=== PATIENT | male | born 1960 | race Caucasian/White ===

== ENCOUNTER 2020-02-24 18:14 | Emergency (ER) | payer OTHER, SELFPAY ==
--- NOTE | 2020-02-24 18:45 | ED.GENADULT ---
HPI - General Adult General Chief complaint: Chest Pain Stated complaint: chest pain Time Seen by Provider: 02/24/20 18:45 Source: patient Mode of arrival: ambulatory Limitations: no limitations History of Present Illness HPI narrative: 59-year-old male patient presents to the [facility] with complaints of chest pain for the past month that is gotten increasingly worse. Patient states that the chest pain is worse with exertion. Patient had a stent placed in his heart about 2 years ago. Patient states he was told he might have had a change of an OK at the time but was not for sure. Patient states he does have an appointment with his corporate coordinator tomorrow but states he thought that the chest pain was getting worse and would come and get checked out. Related Data Home Medications Medication Instructions Recorded Confirmed allopurinol 300 mg tablet 300 mg PO DAILY 09/25/19 alprazolam 0.5 mg tablet 0.5 - 1 mg PO DAILY PRN tablet 09/25/19 aspirin 81 mg tablet,delayed 81 mg PO DAILY 09/25/19 release atorvastatin 10 mg tablet 10 mg PO DAILY 09/25/19 clopidogrel 75 mg tablet 75 mg PO DAILY 09/25/19 cyanocobalamin (vitamin B-12) 500 500 mcg PO DAILY 09/25/19 mcg tablet diltiazem HCl 360 mg capsule,24 360 mg PO DAILY 09/25/19 hr,extended release doxazosin 4 mg tablet 8 mg PO .hs tablet 09/25/19 furosemide 20 mg tablet 60 mg PO QAM tablet 09/25/19 melatonin 5 mg capsule 5 mg PO .hs PRN cap 09/25/19 metoprolol succinate 25 mg 25 mg PO DAILY 09/25/19 tablet,extended release 24 hr phcolwfr-sdr-tbwbw acid 0.4 1 tablet PO DAILY 09/25/19 mg-lycopene 300 mcg-lutein 250 mcg tablet omega-3 fatty acids 1,000 mg 1,000 mg PO DAILY 09/25/19 capsule isosorbide mononitrate mg PO 02/24/20 isosorbide mononitrate mg PO 02/24/20 valsartan-hydrochlorothiazide tablet 02/24/20 Allergies Allergy/AdvReac Type Severity Reaction Status Date / Time naproxen Allergy Mild raised BP Verified 09/25/19 08:18 Review of Systems Review of Systems: Narrative: CONSTITUTIONAL: Denies fever, chills, or sweats. EYES: Denies visual changes, redness, or discharge. ENT: Denies rhinorrhea, congestion, sore throat, or otalgia. CARDIOVASCULAR: Positive chest pain, palpitations, or edema. RESPIRATORY: Denies cough or dyspnea. GASTROINTESTINAL: Denies abdominal pain, nausea, vomiting, or diarrhea. GENITOURINARY: Denies dysuria or hematuria. SKIN: Denies rash or itching. MUSCULOSKELETAL: Denies back pain, joint pain, or myalgia. NEUROLOGIC: Denies headache, numbness, or weakness. PSYCHIATRIC: Denies anxiety or depression. [facility] Past Medical History Medical History (Updated 02/24/20 @ 19:10 by KRYSTLE Cordon) Hypercholesterolemia Hypertension Myocardial infarction Surgical History Surgical History (Updated 02/24/20 @ 19:04 by KRYSTLE Cordon) H/O cardiac catheterization Stent placed Family History Family History Sibling Patient's sister is in good health Patient's brother is Father Patient's father is Social History Social History Smoking status: Former smoker Smoking end date: 07/24/88 Alcohol intake: current Comments At the time of my signature I agree with nursing past medical history, surgical, social, and family history. There is no relevant family history pertinent to the presenting complaint. Exam Narrative: Exam Narrative: GENERAL: Well-appearing, well-nourished, and in no acute distress. HEAD: Normocephalic, atraumatic. EYES: PERRLA and EOMI. ENT: Nares clear, no rhinorrhea or epistaxis. Mucous membranes moist. NECK: Supple. No lymphadenopathy CHEST: Clear to auscultation. No respiratory distress. Patient does appear to have slightly labored breathing and talking in broken sentences but denies shortness of breath. HEART: Regular rate
[2020-02-24 18:48] VITALS: BP 125/64; PULSE 78; RESP 20; TEMP 36.6; O2SAT 96
--- NOTE | 2020-02-24 19:26 | ECG_ITS ---
Measurements Intervals [place] Rate: 92 P: 31 NH: 163 QRS: -29 QRSD: 90 T: 8 QT: 358 QTc: 445 Interpretive Statements SINUS RHYTHM DELAYED PRECORDIAL R/S TRANSITION BASELINE ARTIFACT- I, II, III, AVR, AVL, AVF, V1-V2 BORDERLINE ECG Electronically Signed On 02-24-2020 19:55:24 CDT by Christiano Arroyo D.O.
== END 2020-02-24 19:02 | disposition short-term general hospital (02) ==
PROVIDERS: Emergency Provider Nurse Practitioner Family; PCP Internal Medicine
DX: R07.9 Chest pain, unspecified (principal); I10 Essential (primary) hypertension; I25.2 Old myocardial infarction; Z79.82 Long term (current) use of aspirin; Z87.891 Personal history of nicotine dependence
CPT/HCPCS: 93005; 99213; G0463

== ENCOUNTER 2020-02-24 19:23 | Emergency (ER) | payer OTHER, SELFPAY ==
[2020-02-24 19:32] VITALS: BP 159/88; PULSE 90; PULSE 92; RESP 20; TEMP 36.6; O2SAT 96
--- NOTE | 2020-02-24 19:34 | ED.CHESTPAIN ---
HPI - Chest Pain General Chief Complaint: Chest Pain Stated Complaint: chest pain Time Seen by Provider: 02/24/20 19:29 History of Present Illness HPI narrative: Patient presents for chest pain escalating over the last 2 days. He has a history of a stent with his coronary artery disease. He said the chest pain is been over the last couple months, but much worse in the last 2 days. The last time he had it was 4 PM today when he walked out to the mailbox. It was a 5 out of 10. He points to mid sternum. He said it radiated to the back. Was not associated with shortness of breath nausea or diaphoresis. He no longer smokes cigarettes. He drinks alcohol rarely. He tried a marijuana gummy bear. Surgical history is appendectomy. He has not been sick recent. MD complaint: chest pain Pertinent past history: coronary artery disease Onset (ago): week(s) Timing of current episode: now resolved Prior episodes: Yes Onset: during exertion Pain location: substernal Pain radiation: back Severity: moderate Relieving factors: rest Exacerbating factors: exertion Related Data Home Medications Medication Instructions Recorded Confirmed allopurinol 300 mg tablet 300 mg PO DAILY 09/25/19 alprazolam 0.5 mg tablet 0.5 - 1 mg PO DAILY PRN tablet 09/25/19 aspirin 81 mg tablet,delayed 81 mg PO DAILY 09/25/19 release atorvastatin 10 mg tablet 10 mg PO DAILY 09/25/19 clopidogrel 75 mg tablet 75 mg PO DAILY 09/25/19 cyanocobalamin (vitamin B-12) 500 500 mcg PO DAILY 09/25/19 mcg tablet diltiazem HCl 360 mg capsule,24 360 mg PO DAILY 09/25/19 hr,extended release doxazosin 4 mg tablet 8 mg PO .hs tablet 09/25/19 furosemide 20 mg tablet 60 mg PO QAM tablet 09/25/19 melatonin 5 mg capsule 5 mg PO .hs PRN cap 09/25/19 metoprolol succinate 25 mg 25 mg PO DAILY 09/25/19 tablet,extended release 24 hr nsycyrdl-coo-wtqmz acid 0.4 1 tablet PO DAILY 09/25/19 mg-lycopene 300 mcg-lutein 250 mcg tablet omega-3 fatty acids 1,000 mg 1,000 mg PO DAILY 09/25/19 capsule isosorbide mononitrate mg PO 08/03/20 isosorbide mononitrate mg PO 02/24/20 valsartan-hydrochlorothiazide tablet 02/24/20 Allergies Allergy/AdvReac Type Severity Reaction Status Date / Time naproxen Allergy Mild raised BP Verified 02/24/20 19:44 Review of Systems Review of Systems: Narrative: CONSTITUTIONAL: Denies fever, chills, or sweats. EYES: Denies visual changes, redness, or discharge. ENT: Denies rhinorrhea, congestion, sore throat, or otalgia. CARDIOVASCULAR: He has chest pain, but not palpitations, or edema. RESPIRATORY: Denies cough or dyspnea. GASTROINTESTINAL: Denies abdominal pain, nausea, vomiting, or diarrhea. GENITOURINARY: Denies dysuria or hematuria. SKIN: Denies rash or itching. MUSCULOSKELETAL: Denies back pain, joint pain, or myalgia. NEUROLOGIC: Denies headache, numbness, or weakness. All systems reviewed & are unremarkable except as noted in HPI and below PMFSH Past Medical History Medical History (Updated 02/25/20 @ 00:41 by Penelope Leonard MD) Hypercholesterolemia Hypertension Morbid obesity Myocardial infarction Surgical History Surgical History (Updated 02/24/20 @ 19:37 by Penelope Leonard MD) H/O cardiac catheterization Stent placed History of appendectomy Social History Social History (Updated 02/24/20 @ 19:38 by Penelope Leonard MD) Smoking status: Former smoker Smoking end date: 07/24/88 Alcohol intake: current Substance use: former Exam Narrative: Exam Narrative: GENERAL: Well-appearing, well-nourished, and in no acute distress. Morbid obesity. Unkempt. HEAD: Normocephalic, atraumatic. EYES: PERRLA and EOMI. ENT: Nares clear, no rhinorrhea or epistaxis. Mucous membranes moist. NECK: Supple. CHEST: Clear to auscultation. No respiratory distress. HEART: Regular rate and rhythm. No murmur heard. Normal peripheral pulses. ABDOMEN: Soft, nontender, nondistended, normal active bowel sounds.
--- NOTE | 2020-02-24 19:38 | ECG_ITS ---
Measurements Intervals [place] Rate: 84 P: -7 NH: 123 QRS: -27 QRSD: 98 T: 32 QT: 373 QTc: 442 Interpretive Statements SINUS RHYTHM BORDERLINE R WAVE PROGRESSION, ANTERIOR LEADS BASELINE ARTIFACT- II, III BORDERLINE ECG Electronically Signed On 02-24-2020 19:59:00 CDT by Christiano Arroyo D.O.
--- NOTE | 2020-02-24 20:24 | PC.NURSE ---
ASA not administered-pt was given 324mg ASA ZINC ETCHER.
[2020-02-24 20:33] LABS: Basophils Percent Auto 0.4 % (0.2-1.2); Eosinophils Absolute Auto 0.2 K/mm3 (0-0.3); Eosinophils Percent Auto 2.1 % (0-4.4); Hematocrit 40.9 % (42.0-52.0); Hemoglobin 14.3 g/dL (14.0-18.0); Immature Granulocyte Absolute 0.03 K/mm3 (0.00-0.031); Immature Granulocyte Percent A 0.4 % (0-0.5); Lymphocytes Absolute Auto 2.22 K/mm3 (0.9-3.2); Lymphocytes Percent Auto 30.9 % (18.3-44.2); Mean Corpuscular Hemoglobin 30.4 pg (26-34); Mean Corpuscular Volume 86.8 fl (80-100); Mean Platelet Volume 10.1 fl (7.4-10.4); Monocytes Absolute Auto 0.7 K/mm3 (0.1-0.6); Monocytes Percent Auto 10.2 % (2.6-8.5); Platelet Count Result 272 k/mm3 (150-375); Red Blood Count 4.71 M/mm3 (4.6-6.20); Red Cell Distribution Width 13.9 % (11.5-14.5); White Blood Count 7.2 K/mm3 (4.5-10.0)
--- NOTE | 2020-02-24 20:35 | PC.NURSE ---
pt's niece at bedside, updated on poc. pt continues to deny any CP, hooked up to monitor. will continue to monitor pt for baseline status changes.
[2020-02-24 20:38] VITALS: BP 131/74; PULSE 92; RESP 17; O2SAT 98
[2020-02-24 20:45] LABS: Alanine Aminotransferase 49 U/L (4-50); Albumin Level 4.4 g/dL (3.5-5.1); Alkaline Phosphatase 65 U/L (38-126); Anion Gap 12.6 mmol/L (7-16); Aspartate Amino Transferase 35 U/L (17-59); Bilirubin,Total 0.6 mg/dL (0.2-1.3); Blood Urea Nitrogen 21 mg/dL (9-20); Calcium 9.6 mg/dL (8.4-10.2); Carbon Dioxide 26 mmol/L (22-30); Chloride 101 mmol/L (98-107); Estimated CRCL calculation 87 ml/min; Estimated Glomerular Filt Rate 56; Glucose 105 mg/dL (75-110); Potassium 3.6 mmol/L (3.4-5.0); Sodium 136 mmol/L (137-145)
[2020-02-24 20:55] LABS: NT Pro B Type Natriuretic Pept 45 PG/ML (5-100)
[2020-02-24 20:57] LABS: Troponin I < 0.012 ng/mL (0.000-0.034)
[2020-02-24 21:05] LABS: Add Urine Microscopic? YES; Appearance Urine Clear (Clear); Bilirubin Urine Negative (Negative); Blood Urine Negative (Negative); Color Urine Straw (Yellow); Glucose Urine UA Negative (Negative); Ketones Urine Negative (Negative); Leukocyte Esterase Ur Negative LEU/UL (Negative); Mucus Urine Rare /lpf; Nitrate Urine Negative (Negative); Protein Urine 1+ mg/dL (Negative); RBC Urine 0-2 /hpf (0-2); Specific Grav Ur 1.012 (1.001-1.035); Urobilinogen Urine Negative mg/dL (<2.0); WBC Urine 0-3 /hpf
--- NOTE | 2020-02-24 21:26 | PC.NURSE ---
Nirto paste not administered at this time, pt states he has not been having pain since 4pm. aware.
[2020-02-24 21:30] VITALS: BP 145/77; PULSE 94; RESP 16; O2SAT 97
--- NOTE | 2020-02-24 22:51 | PC.NURSE ---
pt continues to rest sitting up in chair at this time. denies questions/concerns. updated on poc, will continue to monitor pt for baseline status changes. continues to deny pain.
[2020-02-24 23:34] VITALS: BP 155/83; PULSE 91; RESP 17; O2SAT 96
[2020-02-25 00:08] LABS: Troponin I < 0.012 ng/mL (0.000-0.034)
[2020-02-25 00:54] VITALS: BP 149/91; PULSE 82; RESP 18; O2SAT 96
== END 2020-02-25 00:55 | disposition home or self-care (01) ==
PROVIDERS: Emergency Provider Emergency Medicine; PCP Internal Medicine
DX: R07.9 Chest pain, unspecified (principal); Z95.5 Presence of coronary angioplasty implant and graft; I25.10 Atherosclerotic heart disease of native coronary artery without angina pectoris; E78.00 Pure hypercholesterolemia, unspecified; I10 Essential (primary) hypertension; I25.2 Old myocardial infarction; E66.01 Morbid (severe) obesity due to excess calories; Z68.42 Body mass index [BMI] 45.0-49.9, adult; Z87.891 Personal history of nicotine dependence; R94.31 Abnormal electrocardiogram [ECG] [EKG]
CPT/HCPCS: 36415; 80053; 81001; 83880; 84484; 85025; 93005; 99284

== ENCOUNTER 2020-07-30 06:54 | Outpatient (NON) | payer OTHER, SELFPAY ==
[2020-07-30 23:33] LABS: SARS-CoV-2 RNA PCR Negative
== END 2020-07-30 06:55 ==
PROVIDERS: PCP Internal Medicine; Visit Provider Internal Medicine
DX: J02.9 Acute pharyngitis, unspecified (principal); Z20.822 Contact with and (suspected) exposure to COVID-19
CPT/HCPCS: C9803; U0003

== ENCOUNTER → 2023-05-15 15:46 | Outpatient (CLI) | payer OTHER, SELFPAY ==
--- NOTE | ~2023-05-15 | US_ITS ---
Renal-Bladder ultrasound Clinical History: Chronic kidney disease Technique: Real-time sonographic imaging of the kidneys and urinary bladder was performed. Findings: The right kidney measures 11.9 cm in length and the left kidney measures 14 point cm. There is no hydronephrosis or renal calculus identified. Renal cortical echogenicity is mildly increased. Small bilateral renal cysts are noted. The urinary bladder is moderately distended at the time of this exam. No intraluminal echoes are iden tified. No abnormal wall thickening is seen. Impression: No hydronephrosis. Mildly increased renal echogenicity suggests chronic medical renal disease. Small bilateral renal cysts. Reviewed, dictated and finalized at location . Impression: No hydronephrosis. Mildly increased renal echogenicity suggests chronic medical renal disease. Small bilateral renal cysts.
== END ==
PROVIDERS: Visit Provider Internal Medicine
DX: N18.9 Chronic kidney disease, unspecified (principal); N28.1 Cyst of kidney, acquired
CPT/HCPCS: 76775

== ENCOUNTER 2024-12-26 02:57 | Day surgery (SDC) | payer MEDICARE, SELFPAY ==
[2024-12-20 10:19] VITALS: BMI 44.8
--- NOTE | 2024-12-20 11:09 | PC.NURSE ---
Spoke with patient regarding medication plavix. _Patient_verbalizes understanding that the last dose is to be taken on _12/21/2024_ and the Endoscopist will instruct them when to restart after the procedure.
--- OUTSIDE RECORDS SUMMARY | 2024-12-26 03:00 | XMS_ITS | Data Portability ---
Author Organization [place] [facility] [employer], Main Office Address [address] [place] [address] Care Team Providers Care Dairy Quality Assurance Officer Name Role Phone LUZ NATARAJAN Primary Care Provider LUZ NATARAJAN Referring Provider Assessment Encounter Date Assessment Date Assessment LastModified by Organization Details LastModified Time 12/28/2022 12/28/2022 62-year-old male presents to clinic concerning left shoulder pain likely related to cervical radiculopathy originating from his C-spine. He has reproducible pain, numbness and tingling with extension and rotation of his C-spine towards his left shoulder. Discussed possible treatment options including Medrol Dosepak, physical therapy, and referral to pharmacy informatics specialist. We will provide him with a referral to physical therapy for cervical radiculopathy treatment, working on range of motion C-spine strengthening and traction. Will also prescribe him a Medrol Dosepak to help with some of the nerve inflammation. We discussed that if this does not work we may consider referral to a pharmacy informatics specialist. He may return as needed if his symptoms do not improve over the course of the next 6-8 weeks. [email or web address] Not available 12/28/2022 16:27:33 Plan of Treatment Reminders Order Date Submit Date Provider Last Modified By Organization Details Last Modified Time Details Appointments None recorded. Lab None recorded. Referral physical therapist referral - C-SPINE ROM, TRACTION, STRENGTHENI NG, MODALITIES 2022 023 [email or web address] [facility], [address], [place], [address], 16:40:58 Procedures None recorded. Surgeries None recorded. Imaging XR, shoulder, 2 or more view 2022 023 [email or web address] [facility], [address] [place], [address], 16:40:58 Medication Orders Medrol (Hernandez) 4 mg tablets in a dose pack 2022 023 [email or web address] [id number], [address], [place], [address], 16:40:58 Patient TargetsNo targets recorded. Patient InstructionsNo instructions recorded. Reason for Referral Physical Therapist Referral for Cervical radiculopathy C-SPINE ROM, TRACTION, STRENGTHENING, MODALITIES Referring Physician: Champ Bautista, Orthopedics, Encounter Date: 12/28/2022 Results Created Date Observation Date Name Description Value Unit Range Abnormal Flag Note LastModifiedBy Organization Detail LastModifiedTime 06/07/20 22 XR, elbow , 3 or more view No observ ation record ed. [id number] [facility] [address] [place], [address], 09/21/2022 16:16:19 06/07/20 22 XR, hand, 3 or more view No observ ation record ed. [id number] [facility] [address] [place], [address], 09/21/2022 16:16:19 12/29/19 23 XR, shoul eddi, 2 or more view No observ ation record ed. [email or web address] [facility] [address] [place], [address], 12/28/2022 16:24:49 Result Notes None recorded. Problems Name Problem SNOMED Code Status Onset Date Resolution Date Notes Provider Name and Address Organization Details Recorded Time Pain of left elbow joint 1123197209459 9104 Active 2021 Not Available [facility] 3 16:14:52 Current tear of medial cartilage AND/OR meniscus of knee Active Not Available [facility] 3 16:14:52 Pain of left hand 2861096650174 03 Active 2021 Not Available [facility] 3 16:14:53 Osteoarthr itis 819861400 Active Not Available [facility] 3 16:14:53 Derangemen t of knee 77518814 Active Not Available [facility] 3 16:14:53 Degenerati on of interverte bral disc 14317165 Active Not Available [facility] 3 16:14:53 Gout 54724033 Active Not Available [facility] 3 16:14:53 Pain of left shoulder joint 7906177692194 9109 Active 2022 ALIVIA Duron [facility] 3 14:58:30 Cervical radiculopa thy 48596511 Active 2022 Monse ramirez, [facility] 3 15:53:29 Problem Notes None recorded. Procedures Surgical History Date Name Laterality Status Provider Name and Address Organization Details Recorded Time 8 Appendectomy completed Not Available [facility] 023 16:14:21 Imaging Results None recorded. Procedure Notes None recorded. Medical Equipment None Reported. Medications Name Sig Start Date Stop Date Status Note LastModified by Organization Details LastModified Time furosemide 40 mg tablet 05/24 completed Not Available Not Available Not Available atorvastati n 40 mg tablet 05/24 completed Not Available Not Available Not Available atorvastati n 80 mg tablet active Not Available Not Available Not Available prednisone 10 mg tablet 05/24 completed Not Available Not Available Not Available nabumetone 750 mg tablet 05/24 completed Not Available Not Available Not Available azithromyci n 250 mg tablet 05/24 completed Not Available Not Available Not Available hydrocodone 5 mg-acetamin ophen 325 mg tablet TAKE 1 TABLET BY MOUTH EVERY 12 HOURS NEEDED active Not Available Not Available No t Available prednisone 20 mg tablet 05/24 completed Not Available Not Available Not Available isosorbide mononitrate ER 30 mg tablet,exte nded release 24 hr 05/24 completed Not Available Not Available Not Available potassium chloride ER 10 mEq tablet,exte nded release TAKE 1 TABLET BY MOUTH TWICE A DAY active Not Available Not Available No t Available clopidogrel 75 mg tablet active Not Available Not Available Not Available bupropion HCl SR 100 mg tablet,12 hr sustained-r elease 05/24 completed Not Available Not Available Not Available isosorbide mononitrate ER 60 mg tablet,exte nded release 24 hr TAKE 1 TABLET BY MOUTH EVERY DAY active Not Available Not Available No t Available alprazolam 0.5 mg tablet TAKE 1 TABLET BY MOUTH EVERY DAY NEEDED FOR ANXIETY 05/24 completed Not Available Not Available Not Available alprazolam 0.25 mg tablet 05/24 completed Not Available Not Available Not Available doxazosin 8 mg tablet TAKE 1 TABLET BY MOUTH EVERY NIGHT AT BEDTIME active Not Available Not Available No t Available gabapentin 800 mg tablet TAKE 1 TABLET BY MOUTH THREE TIMES A DAY active Not Available Not Available No t Available AndroGel 1 % (50 mg/5 gram) transdermal gel packet 05/24 completed Not Available Not Available Not Available Kenalog 10 mg/mL suspension for injection In office injection administe red by the provider active [facility]: 0003- 0494- 20 Not Available Not Available Not Available nitroglycer in 0.[address] 1 TABLET UNDER TONGUE EVERY 5 MINS, UP TO 3 DOSES NEEDED FOR CHEST PAIN active Not Available Not Available No t Available doxazosin 4 mg tablet 05/24 completed Not Available Not Available Not Available allopurinol 300 mg tablet active Not Available Not Available Not Available furosemide 20 mg tablet active Not Available Not Available Not Available metoprolol succinate ER 25 mg tablet,exte nded release 24 hr active Not Available Not Available Not Available Cheratussin AC 10 mg-100 mg/5 mL oral liquid 05/24 completed Not Available Not Available Not Available methylpredn isolone 4 mg tablets in a dose pack TAKE 6 TABLETS ON DAY 1 DIRECTED ON PACKAGE AND DECREASE BY 1 TAB EACH DAY FOR A TOTAL OF 6 DAYS active Not Available Not Available No t Available fluticasone propionate 50 mcg/actuati on nasal spray,suspe nsion 05/24 completed Not Available Not Available Not Available sertraline 50 mg tablet TAKE 1 TABLET BY MOUTH EVERY DAY active Not Available Not Available No t Available imipramine 25 mg tablet 05/24 completed Not Available Not Available Not Available potassium chloride ER 10 mEq tablet,exte nded release(par t/cryst) 05/24 completed Not Available Not Available Not Available valsartan 320 mg-hydrochl orothiazide 25 mg tablet TAKE 1 TABLET BY MOUTH EVERY DAY active Not Available Not Available No t Available ProAir HFA 90 mcg/actuati on aerosol inhaler 05/24 completed Not Available Not Available Not Available Bystolic 10 mg tablet 05/24 completed Not Available Not Available Not Available Bystolic 20 mg tablet 05/24 completed Not Available Not Available Not Available ropivacaine (PF) 5 mg/mL (0.5 %) injection solution Take 2 mg by injection route. active Not Available Not Available No t Available Tiadylt ER 360 mg capsule,ext ended release TAKE 1 CAPSULE BY MOUTH EVERY DAY active Not Available Not Available No t Available ID NOW COVID-19 Test Kit TEST DIRECTED TODAY active Not Available Not Available No t Available Vitals Date Recorded Body mass index (BMI) Body height Body weight Provider Name and Address Organization Details Last Updated DateTime 09/06/2022 46.8 kg/m2 185.42 cm 137193.29 g Not Available [facility] 09/21/2022 16:14:36 Date Recorded Body height Body mass index (BMI) Body weight Provider Name and Address Organization Details Last Updated DateTime 12/28/2022 185.42 cm 46.2 kg/m2 047904.33 g ALIVIA Duron [place] [facility] [place] [facility] 12/28/2022 14:57:58 Date Recorded Body mass index (BMI) Body height Body weight Provider Name and Address Organization Details Last Updated DateTime 06/07/2022 46.8 kg/m2 185.42 cm 460667.29 g Not Available [facility] 09/21/2022 16:14:36 Social History Question Answer Notes LastModified by Organizat ion Details LastModified Time Tobacco Smoking Status Unknown If Ever Smoked Not Available [facility] 09/21/2022 16:14:20 What Was The Date Of Your Most Recent Tobacco Screening? 06/07/2022 [id number] Information not available 09/21/2022 Sex: Unknown Functional Status Question Answer Note LastModified by Organizat ion Details LastModified Time What is your level of alcohol consumption? Occasional [id number] Information not available 09/21/2022 Mental Status None recorded. Family History Relationship Description Onset Age of this Age Resolved Age Notes LastModified by Organization Details LastModified Time Mother Heart disease [id number] Not available 09/21/2022 16:14:21 Mother Hypertensive disorder [id number] Not available 09/21/2022 16:14:21 Maternal Grandmother Family history of malignant neoplasm [id number] Not available 09/21/2022 16:14:21 Sister Diabetes mellitus [id number] Not available 09/21/2022 16:14:21 Sister Kidney disease [id number] Not available 09/21/2022 16:14:21 Medical History Condition Response USE OF BLOOD THINNERS Y SKIN PROBLEMS Y HYPERTENSION Y ARTHRITIS Y GOUT Y HEART DISEASE/HEART PROBLEMS Y Past Encounters Encounter ID Performer Location Encounter Start Date Encounter Closed Date Diagnosis/Indication Diagnosis SNOMED-CT Code Diagnosis ICD10 Code Diagnosis Note [id number] Terry Sanderson MD [facility] [place] [facility] [address] [place] [address] 06/07/2022 00:00:00 06/07/2022 12:33:10 [id number] Terry Sanderson MD [facility] [place] [address] [place] [address] 09/06/2022 00:00:00 09/06/2022 17:00:11 [id number] Terry Sanderson MD [facility] [place] [address] [place] [address] 12/28/2022 14:52:53 12/28/2022 15:52:25 Pain of left shoulder joint [id number] 8394362 M25.512 Cervical radiculopathy 01831099 M54.12 Health Concerns Section Related Observation LastModified by Organization Detai ls LastModified Time None Recorded Concern Status LastModified by Organization Details LastModified Time None Recorded Advance Directives Directive None Recorded Payers Encounter Date Sequence Insurance Name Policy Number Policy Mcclure Covered Member ID Mcclure Member ID Guarantor Name 12/28/2022 1 [employer] - OPEN ACCESS Asad Johansen [id number] OI Asad Johansen Notes Date Note Type Note Provider Name and Address Organization Details Recorded Time 12/28/2022 text/html 62-year-old male presents to clinic concerning left shoulder pain for the last 2-3 weeks. He states that he gets occasional shoulder pain localized in the posterior shoulder that radiates down the shoulder into the arm and into his hand. he also notes occasional numbness and tingling in his hands when this occurs. He notices when he moves his neck in a certain direction that he is able to reproduce the symptoms. He denies any injury to his neck or shoulder. Notes that he has gone to the chiropractor has been told that he has limited motion in his cervical spine. DENIZ Riojas [address] [place] [address], [facility] [address], [place], [address], [place] [facility] Confer 12/28/2022 16:27:46
--- OUTSIDE RECORDS SUMMARY | 2024-12-26 03:00 | XMS_ITS | Continuity of Care Document ---
Author Organization [facility] Address [address] [place] [address] [address] [place] [address] Phone Care Team Providers Care Senior Recruiter Name Role Phone Chowdhury OD, Berhane Unavailable Unavailable Procedures Procedure Date Eye Exam & Treatment Refraction Eye Exam & Treatment Refraction Advance Directives Directive Yes / No Effective Date File Name No Information Encounters Encounter Description Practice Location Reason(s) For Visit Diagnoses Date Provider Providers Copied on Encounter [facility], [id number] [place] [address] [address], [place], [place], [id number], [place] tel:[phone] SEC [facility] No Information 0-201 0 Chowdhury OD Berhane. [address] , [address], [place], [address], [place]. tel:[phone] [facility], [address] [place] [address] [address], [place], [place], [id number], [place] tel:[phone] SEC [facility] No Information 7-200 8 Chowdhury OD Berhane. [address] , [address], [place], [address], [place]. tel:[phone] Family History Family Member Type Diagnosis Age At Onset No Information Payers Payer name Insurance type Covered democrat ID Authoriza tion(s) No Information Social History Type Description Quantity Date Captured Comments Sex Male Smoking Status No Information Chief Complaint And Reason For Visit No Information Reason For Referral Reason For Referral No Information History Of Present Illness Encounter Date Complaint History Of Prese nt Illness No Information Functional Status Date Functional Assessmen t No Information Instructions Date Instruction Additional Infor mation No Information Assessments Type Assessment Date No Information Patient Care Teams Name Effective Dates (start - stop) Status Members No Information
--- OUTSIDE RECORDS SUMMARY | 2024-12-26 03:00 | XMS_ITS | Clinical Summary ---
Author Organization [facility] 2 Address [address] [facility] [place] [address] Care Team Providers Care Director Of Physical Security Name Role Phone Roger Montero MD Primary Care Provider [phone] Allergies No known active allergies Medications allopurinol (ZYLOPRIM) 300 mg tablet Take 1 tablet (300 mg total) by mouth daily Active aspirin 81 mg tablet Take 81 mg by mouth daily. 9 Active pljkavqi-pnw-KW- lycopen-lutein 0.4-300-250 mg-mcg-mcg tabletIndication s:Vitamin Deficiency Prevention daily. Active docusate sodium (COLACE) 100 mg capsuleIndicatio ns:constipation daily as needed 2 tabs daily Active cyanocobalamin (Vitamin B-12) 500 mcg tabletIndication s:Prevention of Vitamin B12 Deficiency daily. Active resveratrol 50 mg capsule 2 (two) times a day Active guaiFENesin ER (MUCINEX) 600 mg 12 hr tablet as needed Active sertraline (ZOLOFT) 50 mg tablet Take 1 tablet (50 mg total) by mouth daily. 30 tablet 3 8 Active ALPRAZolam (XANAX) 0.5 mg tablet daily as needed 2 Active nitroglycerin (NITROSTAT) 0.[address] 1 tablet (0.4 mg total) under the tongue every 5 (five) minutes as needed for chest pain May repeat dose q 5 min, up to 3 doses total 30 tablet 3 2 Active Additional Information Patient not taking.Reported on 11/13/2024 potassium chloride ER (KLOR-CON) 10 mEq CR tablet Take 2 tablet/capsule (20 mEq total) by mouth daily 2 Active Farxiga 10 mg tablet Take 1 tablet (10 mg total) by mouth daily 4 Active atorvastatin (LIPITOR) 80 mg tablet TAKE 1 TABLET BY MOUTH EVERY DAY 90 tablet 3 4 Active diltiazem (Tiadylt ER) 360 mg 24 hr capsule Take 1 capsule (360 mg total) by mouth daily 90 capsule 3 4 Active metoprolol XL (TOPROL-XL) 25 mg extended release tablet TAKE 1 TABLET BY MOUTH EVERY DAY 90 tablet 3 4 Active valsartan-hydroc hlorothiazide (DIOVAN-HCT) 320-25 mg per tablet TAKE 1 TABLET BY MOUTH EVERY DAY 90 tablet 2 4 Active doxazosin (CARDURA) 8 mg tablet TAKE 1 TABLET BY MOUTH EVERYDAY AT BEDTIME 90 tablet 2 4 Active isosorbide mononitrate ER (IMDUR) 60 mg 24 hr tablet TAKE 1 TABLET BY MOUTH EVERY DAY 90 tablet 3 4 Active furosemide (LASIX) 20 mg tablet TAKE 1 TABLET BY MOUTH TWICE A DAY 180 tablet 3 5 Active clopidogreL (PLAVIX) 75 mg tablet TAKE 1 TABLET BY MOUTH DAILY 90 tablet 3 5 Active pregabalin (LYRICA) 75 mg capsule Take 1 capsule (75 mg total) by mouth 3 (three) times a day 5 Active HYDROcodone-acet aminophen (NORCO) 5-325 mg per tablet Take 1 tablet by mouth every 12 (twelve) hours as needed for pain Active Active Problems Problem Noted Date Diagnosed Date Coronary artery disease invo lving [place] coronary artery without angina pectoris 04/16/2020 Mixed hyperlipidemia 04/16/2020 Hypertension 07/11/2018 Overview (07/11/2018): Hypertension S/P coronary artery stent placement Encounters Date Type Department Care Team Description 12/03/2024 Telephone [facility] Cardiology [address] [facility] 8th [place] [address] [place] [address] Malik Fabian MD 11/13/2024 11:30 AM CDT Office Visit [facility] Cardiology [address] [facility] [address] [place] [address] Malik Fabian MD Coronary artery disease involving [place] coronary artery of [place] heart without angina pectoris from Last 3 Months Surgical History Surgery Date Site/Laterality Comments APPENDECTOMY Appendectomy CARDIAC CATHETERIZATION CORONARY STENT PLACEMENT PLANTAR'S WART EXCISION Medical History Medical History Date Comments Hx 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; Comments: GUILLERMO 05/05/2014 - Hx Other Medical chronic back pa in Hx Other Medical Gout Hypertension Hypertension Coronary artery disease Family History Medical History Relation Name Comments Heart failure Maternal Grandmother Family history of congestive heart failure - (Added by TW Conv) Hypertension Mother Family history of hypertension - (Added by TW Conv) Hypertension Other Family history of Hypertension; Relation Name Status Comments Maternal Grandmother Mother Other Social History Tobacco Use Types Packs/Day Years Used Date Smoking Tobacco: Former Smokeless Tobacco: Never Tobacco Cessation:Counseling Given: Not Answered Alcohol Use Standard Drinks/Week Comments Defer 0 (1 standard drink = 0.6 oz pur e alcohol) PHQ-2 Answer Date Recorded PHQ-2 Total Score (If total score is 3 or more points, staff should administer the PHQ-9) 2 05/15/2020 Sex and Gender Information Value Date Recorded Sex Assigned at Not on file Legal Sex Male 3:20 AM RN QUALITY Gender Identity Not on file Sexual Orientation Not on file Obstetrics History Last Filed Vital Signs Vital Sign Reading Time Taken Comments Blood Pressure 110/62 11/13/2024 11:32 AM CDT Pulse 74 11/13/2024 11:32 AM CDT Temperature 36.4 C (97.6 F) 06/29/2020 3:09 PM RN QUALITY Respiratory Rate 10 03/17/2020 3:40 PM CDT Oxygen Saturation 96% 11/13/2024 11:32 AM CDT Inhaled Oxygen Concentration - - Weight 158.3 kg (349 lb) 11/13/2024 11:32 AM CDT Height 188 cm (6' 2) 11/13/2024 11:32 AM CDT Body Mass Index 44.81 11/13/2024 11:32 AM CDT Plan of Treatment Health Maintenance Due Date Last Done Comments Colon Cancer Screening-Colonoscopy 1959 Hepatitis C Screening 1959 Prostate Cancer Screening-PSA 1959 DTaP/Tdap/Td Vaccine (1 - Tdap) 1970 Hepatitis B Screening 1977 Pneumococcal vaccine 65+ (1 of 1 - PCV) 2009 Zoster Vaccine (1 of 2) 2009 Fall Risk Assessment 03/17/2021 03/17/2020 Depression Screening 05/15/2021 05/15/2020, 05/15/2020, 05/30/2018, Additional history exists Abdominal Aortic Aneurysm (A AA) Screen 2024 Well Visit 65+ 2024 Influenza Vaccine (Season Ended) 2025 05/07/2018, 04/21/2017, 06/02/2015 Medical Devices Implanted Type Area Commercial Credit Officer Device Identifier Shelf Expiration Date Model / Serial / Lot Med[employer] X [id number] Resolute [place] 3.5mm 2.1-2.7fr 15mm 140cm Rapid Exchange - [id number] - [id number] Implanted:Qty: 1 on 03/17/2020 by Sintek, Malik Nicholson MD at [facility] Stent [employer] 07/04/2020 [id number] / [id number] / [id number] Insurance [employer] [facility] AETNA MEDICARE [facility] CHOICE PLUS Advance Directives For more information, please contact: [phone] * Full Code (Latest Code Status on File) Date Activated Date Inactivated Comments 03/17/2020 2:53 PM 03/17/2020 11:05 PM Care Teams Director Of Physical Security Relationship Specialty Start Date End Date Roger Montero MD [address] [facility] [address] [place] [address] PCP - General 09/17/14
--- OUTSIDE RECORDS SUMMARY | 2024-12-26 03:00 | XMS_ITS | Clinical Summary ---
Author Organization [facility] Address [address] [place] [address] Care Team Providers Care Development System Efficiency Manager Name Role Phone Unavailable Primary Care Provider Unavailabl e Source Comments [facility],non-owned Affiliates and Associated Physician Practices is amultiple site organization consisting of ambulatory clinics and hospital sitesin [place], [place], [place] and [place]. This disclosure is being madepursuant to the Care Everywhere program and may not contain all information available regarding this patient. Last updated 18.[facility] Social History Tobacco Use Types Packs/Day Years Used Date Smoking Tobacco: Never Assessed Sex and Gender Information Value Date Recorded Sex Assigned at Not on file Legal Sex Male 3:28 PM CDT Gender Identity Not on file Sexual Orientation Not on file Plan of Treatment Health Maintenance Due Date Last Done Comments COLOGUARD (AGES 45-75) - COL ON CA SCREENING 1959 COLON MONITORING 1959 COLONOSCOPY - COLON CA SCREENING 1959 CT COLONOGRAPHY - COLON CA SCREENING 1959 Colorectal Cancer Screening 1959 FIT - COLON CA SCREENING 1959 FLEX SIG - COLON CA SCREENING 1959 LIPID TESTING 1959 HIV SCREENING 1974 HEPATITIS C SCREENING 02/28/1977 DTAP/TDAP/TD VACCINES (1 - Tdap) 1978 PNEUMOCOCCAL VACCINE 50+ (1 of 1 - PCV) 2009 ZOSTER VACCINE (1 of 2) 2009 COVID-19 VACCINE ( - 2023-2 5 season) 2024 DEPRESSION SCREENING 07/24/2024 INFLUENZA VACCINE (Season Ended) 2025 Respiratory Syncytial Virus (RSV) Vaccine Pt: or over 60 yrs (1 - 1-dose 75+ series) 2034 HEPATITIS B VACCINE Aged Out No longe r eligible based on patient's age to complete this topic HIB VACCINE Aged Out No longer eligi ble based on patient's age to complete this topic HPV VACCINE Aged Out No longer eligi ble based on patient's age to complete this topic MENINGOCOCCAL (Group B) VACC INE SHARED DECISION-MAKING Aged Out No longer eligibl e based on patient's age to complete this topic MENINGOCOCCAL GROUPS A/C/Y/W VACCINE Aged Out No longer eligible b ased on patient's age to complete this topic Insurance
--- OUTSIDE RECORDS SUMMARY | 2024-12-26 03:00 | XMS_ITS | Encounter Summary ---
Author Organization 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 SHEAR OPERATOR Gender Identity Not on file Sexual Orientation Not on file documented as of this encounter Plan of Treatment Not on file documented as of this encounter Procedures Procedure Name Priority Date/Time Associated Diagnosis Comments STRESS ECHOCARDIOGRAPHY 09/11/2017 documented in this encounter Results * STRESS ECHOCARDIOGRAPHY (09/11/2017) Anatomical Region Laterality Modality N/A Nuclear Medicine us Provider Scanning IMG NM PROCEDURES Final Result documented in this encounter Visit Diagnoses Not on filedocumented in this encounter Care Teams Approver Relationship Specialty Start Date End Date Roger Montero MD [address] [place] [address] PCP - General 09/17/14 documented as of this encounter
--- OUTSIDE RECORDS SUMMARY | 2024-12-26 03:00 | XMS_ITS | Referral Summary ---
Author Organization [facility] Medical [facility] Building 2 Address [address] [facility] [place] [address] Care Team Providers Care China Decorator Name Role Phone Roger Montero MD Primary Care Provider +1- [phone] Encounters Date Type Department Care Team Description 12/03/2024 Telephone [facility] Cardiology [address] [place] [address] Medicine 8th [place] [address] [place] [address] Malik Fabain MD 11/13/2024 11:30 AM CDT Office Visit [facility] Cardiology [address] [facility] [address] [place] [id number] Malik Fabian MD Coronary artery disease involving [place] coronary artery of [place] heart without angina pectoris from Last 3 Months Allergies No known active allergies Medications allopurinol (ZYLOPRIM) 300 mg tablet Take 1 tablet (300 mg total) by mouth daily Active aspirin 81 mg tablet Take 81 mg by mouth daily. 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 DATA ARCHITECT Gender Identity Not on file Sexual Orientation Not on file Last Filed Vital Signs Vital Sign Reading Time Taken Comments Blood Pressure 110/62 11/13/2024 11:32 AM CDT Pulse 74 11/13/2024 11:32 AM CDT Temperature 36.4 C (97.6 F) 06/29/2020 3:09 PM SAP DATA ARCHITECT Respiratory Rate 10 03/17/2020 3:40 PM CDT Oxygen Saturation 96% 11/13/2024 11:32 AM CDT Inhaled Oxygen Concentration - - Weight 158.3 kg (349 lb) 11/13/2024 11:32 AM CDT Height 188 cm (6' 2) 11/13/2024 11:32 AM CDT Body Mass Index 44.81 11/13/2024 11:32 AM CDT Plan of Treatment Not on file Medical Devices Implanted Type Area Maintenance Mechanic Technician Device Identifier Shelf Expiration Date Model / Serial / Lot Medtronic [employer] X [id number] Resolute [place] 3.5mm 2.1-2.7fr 15mm 140cm Rapid Exchange - [id number] - [id number] Implanted:Qty: 1 on 03/17/2020 by Malik Fabian MD at [facility] Stent [employer] 07/04/2020 [id number] / [id number] / [id number] Insurance [facility] AET MEDICARE CHOICE PLUS Advance Directives For more information, please contact: [phone] * Full Code (Latest Code Status on File) Date Activated Date Inactivated Comments 03/17/2020 2:53 PM 03/17/2020 11:05 PM Care Teams China Decorator Relationship Specialty Start Date End Date Roger Montero MD [address] [facility] [address] [place] [address] PCP - General 09/17/14
[2024-12-26 08:36] VITALS: BP 122/72; PULSE 81; RESP 16; TEMP 36.5; O2SAT 97; BMI 44.9
[2024-12-26] MEDS: LACTATED RINGERS 1,000 ML 150 ML IV CONT (08:39)
--- NOTE | 2024-12-26 08:46 | P.PNAN_ITS ---
Anes - Initial Pre Proc Eval Procedure: Operation Date: 12/26/24 09:00 Proposed Procedures p Screening Colonoscopy - Roberto Contreras MD Date/Time: 12/26/24 08:46 Surgeon: Roberto Contreras MD Pre Op Diagnosis: Encounter for screening for malignant neoplasm of Patient Data Age: 64 Gender: M Height: 1.88 m Weight: 158.7 kg Last Vital Signs Temp 97.7 F 12/26/24 08:36 Pulse 81 12/26/24 08:36 Resp 16 12/26/24 08:36 BP 122/72 12/26/24 08:36 Pulse Ox 97 12/26/24 08:36 O2 Del Method Room Air 12/26/24 08:36 Allergies Allergy/AdvReac Type Severity Reaction Status Date / Time naproxen Allergy Mild raised BP Verified 12/26/24 08:33 Home Medications ?Medication ?Instructions ?Recorded ?Confirmed ?Type atorvastatin 10 mg tablet 10 mg PO DAILY 09/25/19 12/26/24 History clopidogrel 75 mg tablet 75 mg PO DAILY 09/25/19 12/26/24 History cyanocobalamin (vitamin B-12) 500 500 mcg PO DAILY 09/25/19 12/26/24 History mcg tablet (Vitamin B-12) diltiazem HCl 360 mg capsule,24 360 mg PO DAILY 09/25/19 12/26/24 History hr,extended release doxazosin 4 mg tablet 8 mg PO .hs 09/25/19 12/26/24 History metoprolol succinate 25 mg 25 mg PO DAILY 09/25/19 12/26/24 History tablet,extended release 24 hr vvfdtanf-ygx-jpomv acid 0.4 1 tablet PO DAILY 09/25/19 12/26/24 History mg-lycopene 300 mcg-lutein 250 mcg tablet (Centrum Silver) nitroglycerin 0.4 mg sublingual 0.4 mg sublingual Q5-15M PRN chest 02/24/20 12/20/24 Rx tablet pain #30 tabs valsartan 320 1 tablet PO DAILY 02/24/20 12/26/24 History mg-hydrochlorothiazide 25 mg tablet isosorbide mononitrate 30 mg 60 mg PO 05/01/20 10/29/24 History tablet,extended release 24 hr furosemide 40 mg tablet (Lasix) 40 mg PO QAM #90 tabs 09/29/23 12/26/24 Rx dapagliflozin propanediol 10 mg 10 mg PO DAILY #90 tabs 10/11/24 12/26/24 Rx tablet (Farxiga) sertraline 50 mg tablet 50 mg PO DAILY #90 tabs 10/11/24 12/26/24 Rx potassium chloride 10 mEq See Rx Instructions .Route 11/13/24 12/26/24 Rx tablet,extended release .COMPLEX #180 tabs alprazolam 0.5 mg tablet 0.5 mg PO DAILY PRN anxiety #20 11/21/24 12/26/24 Rx tabs hydrocodone 5 mg-acetaminophen 325 1 tablet PO Q12H PRN pain #20 tabs 11/21/24 12/20/24 Rx mg tablet pregabalin 100 mg capsule 100 mg PO TID #90 caps 11/21/24 12/26/24 Rx allopurinol 300 mg tablet 300 mg PO DAILY #90 tabs 12/10/24 12/26/24 Rx docusate sodium 100 mg capsule 100 mg PO DAILY 12/20/24 12/26/24 History (Dulcolax Stool Softener (docusate)) doxazosin 8 mg tablet 8 mg PO QPM 12/20/24 12/26/24 History furosemide 20 mg tablet 20 mg PO Q12H 12/20/24 12/26/24 History isosorbide mononitrate 60 mg 60 mg PO DAILY 12/20/24 12/26/24 History tablet,extended release 24 hr resveratrol 100 mg-grape skin 1 tablet PO BID 12/20/24 12/26/24 History extract 10 mg tablet Patient hx anesthesia problems: none Family hx anesthesia problems: none Results Review: All pre-operative results and documents have been reviewed as part of the pre- operative evaluation. [facility] Past Medical History Medical History Anxiety CRD (chronic renal disease), stage II Morbid obesity Hypercholesterolemia Hypertension Myocardial infarction Surgical History Surgical History History of appendectomy H/O cardiac catheterization Stent placed Family History Family History Sibling Patient's sister is in good health Patient's brother is Father Patient's father is Social History Social History Smoking packs per day: 0.25 Smoking cigarettes per day: 5.0 Years smoked: 5 Smoking pack-years: 1.25 Smoking status: Former smoker Smoking end date: 07/24/88 Alcohol intake: current Substance use: current Substance use type: does not use Do You Feel Safe in your Home?: Yes Lack of Transportation: No Lack of Food: Never True Current Housing: I Have Housing Concerned About Future Housing: No Difficulty Paying Gas/Electric Bills: No Difficulty Paying for Meds: No Currently Unemployed: No Education: Master's Degree or Higher Difficulty w/ Childcare or Family Care: No Living arrangements: alone Gender identity (if verbalized by the patient): Male Spiritual care concerns: No Anes - Eval Final PreProcedure Day of Procedure 12/26/24 08:46 Patient weight: morbidly obese Lungs: normal air movement Airway: Mallampati scale class III Neurological: alert and oriented Last oral intake: >/= 8 hours ASA classification: IV Emergent: no Anesthetic plan: proceed Anesthesia type and monitoring: general GIVS and standard monitoring Results Review: All pre-operative results and documents have been reviewed as part of the pre- operative evaluation. HTN, Hyperlipidemia, BMI 44, s/p PTCA 2017/2019 and stable from cardiac standpoint. Informed Consent: The patient's anesthetic plan and its attendant risks and benefits were discussed with the patient/family/POA. Questions were solicited and answers provided to the satisfaction of the patient/family/POA.
[2024-12-26 09:16] VITALS: BP 85/47; PULSE 63; RESP 17; O2SAT 98
[2024-12-26 09:26] VITALS: BP 99/57; PULSE 60; RESP 18; O2SAT 97
[2024-12-26 09:36] VITALS: BP 112/55; PULSE 61; RESP 18; O2SAT 97
== END 2024-12-26 09:45 | disposition home or self-care (01) ==
PROVIDERS: PCP Internal Medicine; Referring Provider Internal Medicine; Visit Provider Internal Medicine Gastroenterology
PROC: 0DJD8ZZ Inspection of Lower Intestinal Tract, Via Natural or Artificial Opening Endoscopic (ICD-10-PCS; CPT 45378; principal; 2024-12-26 09:00)
DX: Z12.11 Encounter for screening for malignant neoplasm of colon (principal); K57.30 Diverticulosis of large intestine without perforation or abscess without bleeding; K64.8 Other hemorrhoids; Z87.891 Personal history of nicotine dependence
CPT/HCPCS: G0121; J2003; J2704; J7120